=== PATIENT | female | born 1975 | race Caucasian/White ===

== ENCOUNTER 2016-08-06 14:18 | Outpatient (CLI) | payer MEDICAID ==
--- NOTE | 2016-08-09 13:24 | Mammography Report ---
DIGITAL SCREENING MAMMOGRAM: 08/06/2016 CLINICAL INDICATION: A 41-year-old for baseline. TECHNIQUE: Routine CC and MLO projections were obtained of the breasts. FINDINGS: The breasts demonstrate scattered fibroglandular densities bilaterally. A few punctate, t ypically benign calcifications are present. No suspicious masses, clustered microcalcifications, or regions of architectural distortion are identified. IMPRESSION: BENIGN FINDINGS. RECOMMENDATION: Routine annual screening unless otherwise clinically indicated. BIRADS CATEGORY 2 - BENIGN FINDINGS. STANDARD QUALIFYING STATEMENTS 1. This examination was reviewed with the aid of Computer-Aided Detection (CAD). 2. A negative or benign imaging report should not delay biopsy if clinically suspicious findings are present. Consider surgical consultation if warranted. More than 5% of cancers are not identified by i maging. 3. Dense breasts may obscure an underlying neoplasm. JOB #: [id number] EXT JOB #:[id number]
== END 2016-08-06 14:19 | disposition home or self-care (01) ==
LOC: DI.N 14:18
PROVIDERS: ATTEND Nurse Practitioner Gerontology
DX: Z12.39 Encounter for other screening for malignant neoplasm of breast (principal)
CPT/HCPCS: 77067

== ENCOUNTER 2018-04-20 13:17 | Outpatient (CLI) | payer OTHER ==
--- NOTE | 2018-04-20 13:54 | Mammography Report ---
Reason: SCREENING MAMMO Procedure Date: 04/20/2018 Accession Number: [id number] / [id number] Procedure: MGN - Screening Mammo Dig Bilat CPT Code: FULL RESULT: EXAM: Screening Mammo Dig Bilat DATE: 04/20/2018 1:34 PM CLINICAL HISTORY: Routine screening TECHNIQUE: Bilateral CC and MLO views were obtained. COMPARISON: 08/06/2016 FINDINGS: There are scattered fibroglandular densities. No significant interval change. No suspicious masses, clustered microcalcifications, or regions of architectural distortion are identified. Asymmetric increased density left upper outer quadrant posterior third is similar to previous but has not been evaluated by additional views or ultrasound. IMPRESSION: 1. Negative right breast. 2. Needs additional evaluation left upper outer quadrant posterior third by spot compression and true lateral views. Possible ultrasound. RECOMMENDATION: Left breast additional imaging. BIRADS CATEGORY 0: Needs additional views. STANDARD QUALIFYING STATEMENTS: 1. This examination was reviewed with the aid of Computer-Aided Detection (CAD). 2. A negative or benign imaging report should not delay biopsy if clinically suspicious findings are present. Consider surgical consultation if warrented. More than 5% of cancers are not identified by imaging. 3. Dense breasts may obscure an underlying neoplasm.
== END 2018-04-20 13:18 | disposition home or self-care (01) ==
LOC: DI.N 13:17
DX: Z12.31 Encounter for screening mammogram for malignant neoplasm of breast (principal); R92.8 Other abnormal and inconclusive findings on diagnostic imaging of breast
CPT/HCPCS: 77067

== ENCOUNTER 2018-05-11 13:59 | Outpatient (CLI) | payer OTHER ==
--- NOTE | 2018-05-11 16:09 | Ultrasound Report ---
Reason: ABNL MAMMO Procedure Date: 05/11/2018 Accession Number: [id number] / [id number] Procedure: US - Breast Unilateral Limited CPT Code: FULL RESULT: EXAM: Diag Special Views Dig LT, Breast Unilateral Limited DATE: 05/11/2018 2:59 PM CLINICAL HISTORY: Diagnostic examination. Additional evaluation of a left breast upper outer quadrant asymmetry. TECHNIQUE: Left breast spot CC, spot MLO and ML images obtained. Focused left breast ultrasound is performed. COMPARISON: 04/20/2018 and 08/06/2016. FINDINGS: The breasts demonstrate scattered fibroglandular densities bilaterally. The left breast asymmetry persists focally in the lateral left breast. Tomographic images characterize the finding as isodense and lobular. No suspicious architectural distortion or associated calcifications are identified. Focused left breast ultrasound reveals normal breast tissue with no suspicious abnormality or definite correlate. The mammographic finding therefore represents probably benign breast tissue. IMPRESSION: Probable benign findings RECOMMENDATION: Recommend diagnostic left breast mammogram in 6 months. BIRADS CATEGORY 3 STANDARD QUALIFYING STATEMENTS: 1. This examination was not reviewed with the aid of Computer-Aided Detection (CAD). 2. A negative or benign imaging report should not delay biopsy if clinically suspicious findings are present. Consider surgical consultation if warrented. More than 5% of cancers are not identified by imaging. 3. Dense breasts may obscure an underlying neoplasm. 4. This examination was reviewed with the aid of 3D imaging (tomography).
== END 2018-05-11 14:00 | disposition home or self-care (01) ==
LOC: DI 13:59
PROVIDERS: ATTEND Nurse Practitioner Gerontology
DX: R92.8 Other abnormal and inconclusive findings on diagnostic imaging of breast (principal)
CPT/HCPCS: 76642

== ENCOUNTER 2019-12-28 08:00 | Outpatient (CLI) | payer BC ==
[2019-12-28 18:22] LABS: BASOPHILS % (AUTO) 0.7 %; EOSINOPHILS # (AUTO) 0.1 10^3/uL (0.0-0.7); HGB - HEMOGLOBIN 13.4 g/dL (12.0-16.0); LYMPHOCYTES # (AUTO) 2.3 10^3/uL (1.5-3.5); LYMPHOCYTES % (AUTO) 40.2 %; MEAN CORPUSCULAR HEMOGLOBIN 30.7 pg (27.0-31.0); MEAN CORPUSCULAR HGB CONC 32.5 g/dL (32.0-36.0); MEAN CORPUSCULAR VOLUME 94.5 fL (81.0-99.0); MEAN PLATELET VOLUME 9.6 fL (7.9-10.8); MONOCYTES # (AUTO) 0.5 10^3/uL (0.0-1.0); MONOCYTES % (AUTO) 8.5 %; NEUTROPHILS # (AUTO) 2.7 10^3/uL (1.5-6.6); NEUTROPHILS % (AUTO) 48.4 %; PLT - PLATELET COUNT 305 10^3/uL (130-450); RED BLOOD COUNT 4.36 10^6/uL (4.20-5.40); RED CELL DISTRIBUTION WIDTH 12.3 % (12.0-15.0); WHITE BLOOD COUNT 5.6 x10^3/uL (4.8-10.8)
[2019-12-28 19:07] LABS: ALBUMIN 4.4 g/dL (3.2-5.5); ALBUMIN/GLOBULIN RATIO 1.3 (1.0-2.2); BILIRUBIN,TOTAL 0.6 mg/dL (0.2-1.0); CREATININE 0.8 mg/dL (0.4-1.0); TOTAL PROTEIN 7.7 g/dL (6.7-8.2)
== END 2019-12-28 23:59 | disposition home or self-care (01) ==
LOC: LAB.WCP 08:00
PROVIDERS: ATTEND Family Medicine
DX: R10.9 Unspecified abdominal pain (principal); K21.9 Gastro-esophageal reflux disease without esophagitis
CPT/HCPCS: 36415; 80053; 82150; 83690; 85025

== ENCOUNTER 2020-01-01 10:24 | Outpatient (CLI) | payer BC ==
--- NOTE | 2020-01-01 11:20 | Ultrasound Report ---
PROCEDURE: Abdomen Limited INDICATIONS: GERD, ABD PAIN TECHNIQUE: Real-time focused scanning was performed of the abdomen, with image documentation. COMPARISON: None FINDINGS: The liver is enlarged measuring up to 20 cm in maximum transverse dimension, width diffusely increase d hepatic parenchymal echogenicity consistent with hepatic steatosis. No focal hepatic mass. No intra pelvic biliary ductal dilatation. Common hepatic duct and common bile duct are normal in caliber. Nor elian distended gallbladder with no wall thickening or pericholecystic fluid. No shadowing gallstones or sludge identified in the gallbladder. Pancreas is within normal limits. Right kidney unremarkable . Aorta and IVC are within normal limits. IMPRESSION: Hepatomegaly with increased hepatic parenchymal echogenicity, likely reflecting hepatic steatosis alt sheridan steatohepatitis or other form of hepatitis (or less likely a hepatic storage disorder) will nee d clinical exclusion. Reviewed by: Bharat Allen MD on 01/01/2020 11:19 AM PDT Approved by: Bharat Allen MD on 01/01/2020 11:19 AM PDT Station ID: [id number]
== END 2020-01-01 10:25 | disposition home or self-care (01) ==
LOC: DI 10:24
PROVIDERS: ATTEND Family Medicine
DX: R16.0 Hepatomegaly, not elsewhere classified (principal); R93.2 Abnormal findings on diagnostic imaging of liver and biliary tract
CPT/HCPCS: 76705

== ENCOUNTER 2021-05-22 09:56 | Outpatient (CLI) | payer BC ==
--- NOTE | 2021-05-22 11:36 | Ultrasound Report ---
PROCEDURE: Abdomen Complete INDICATIONS: HEPATOSPLENOMEGALY TECHNIQUE: Real-time scanning was performed of the abdominal and retroperitoneal organs, with image documentatio n. COMPARISON: January 01, 2020 TECHNIQUE: Sonographic evaluation of the abdomen was performed. FINDINGS: AORTA: The visualized abdominal aorta is normal. IVC: The visualized IVC is normal. LIVER: Enlarged, measuring 21 cm in length. Increased echogenicity, compatible hepatic steatosis. T he portal vein is patent. PANCREAS: The visualized portions of the pancreas are normal. Gallbladder and biliary tree: Within normal limits. RIGHT KIDNEY: Normal in appearance with no hydronephrosis. Measuring 11.1 cm in length. The renal c ortex thickness measures 1.5 cm. LEFT KIDNEY: Normal in appearance with no hydronephrosis. Measuring 10.8 cm in length. The renal co rtex thickness measures 1.7 cm. Spleen: Normal contour, measuring 9.9 cm. No evidence for ascites. IMPRESSION: 1.Hepatic steatosis and hepatomegaly. Reviewed by: Kenroy Arana MD on 05/22/2021 11:35 AM PDT Approved by: Kenroy Arana MD on 05/22/2021 11:35 AM PDT Station ID: [id number]
== END 2021-05-22 09:57 | disposition home or self-care (01) ==
LOC: DI 09:56
PROVIDERS: ATTEND Nurse Practitioner
DX: K76.0 Fatty (change of) liver, not elsewhere classified (principal); R16.0 Hepatomegaly, not elsewhere classified

== ENCOUNTER 2021-05-23 10:36 | Outpatient (CLI) | payer BC ==
[2021-05-23 14:05] LABS: BASOPHILS % (AUTO) 0.7 %; EOSINOPHILS % (AUTO) 0.7 %; HCT - HEMATOCRIT 42.9 % (37.0-47.0); HGB - HEMOGLOBIN 14.6 g/dL (12.0-16.0); LYMPHOCYTES # (AUTO) 1.8 10^3/uL (1.5-3.5); LYMPHOCYTES % (AUTO) 32.7 %; MEAN CORPUSCULAR HEMOGLOBIN 31.1 pg (27.0-31.0); MEAN CORPUSCULAR VOLUME 91.5 fL (81.0-99.0); MEAN PLATELET VOLUME 9.9 fL (7.9-10.8); MONOCYTES # (AUTO) 0.4 10^3/uL (0.0-1.0); MONOCYTES % (AUTO) 6.9 %; NEUTROPHILS # (AUTO) 3.1 10^3/uL (1.5-6.6); NEUTROPHILS % (AUTO) 58.8 %; PLT - PLATELET COUNT 288 10^3/uL (130-450); RED BLOOD COUNT 4.69 10^6/uL (4.20-5.40); RED CELL DISTRIBUTION WIDTH 12.4 % (12.0-15.0); WHITE BLOOD COUNT 5.4 x10^3/uL (4.8-10.8)
[2021-05-23 14:21] LABS: ALBUMIN 4.4 g/dL (3.2-5.5); ALBUMIN/GLOBULIN RATIO 1.4 (1.0-2.2); ALKALINE PHOSPHATASE 32 IU/L (42-121); ALT ALANINE AMINOTRANSFERASE 43 IU/L (10-60); AST ASPARTATE AMINOTRANSFERASE 30 IU/L (10-42); BILIRUBIN,TOTAL 0.8 mg/dL (0.2-1.0); BUN - BLOOD UREA NITROGEN 15 mg/dL (6-20); CARBON DIOXIDE - CO2 24 mmol/L (21-32); CHLORIDE 105 mmol/L (101-111); CHOL/HDL RATIO 3.7 (<4.4); CHOLESTEROL 187 mg/dL; CREATININE 0.7 mg/dL (0.4-1.0); GFR - MDRD 90 (>89); GLUCOSE 117 mg/dL (70-100); HDL CHOLESTEROL 51 mg/dL; LDL CHOLESTEROL,CALCULATED 123 mg/dL; LDL/HDL RATIO 2.4 (<4.4); POTASSIUM 3.9 mmol/L (3.5-5.0); SODIUM 140 mmol/L (135-145); TOTAL PROTEIN 7.6 g/dL (6.7-8.2); TRIGLYCERIDES 67 mg/dL; VLDL CHOLESTEROL 13 mg/dL
[2021-05-23 14:32] LABS: THYROID STIMULATING HORMONE 0.57 uIU/mL (0.34-5.60)
== END 2021-05-23 10:37 | disposition home or self-care (01) ==
LOC: LAB.N 10:36
PROVIDERS: ATTEND Nurse Practitioner
DX: Z00.00 Encounter for general adult medical examination without abnormal findings (principal); I10 Essential (primary) hypertension
CPT/HCPCS: 36415; 80053; 80061; 83721; 84443; 85025